=== PATIENT | male | born 1995 | race Caucasian/White ===

== ENCOUNTER 2019-04-20 17:17 | Emergency (ER) | payer BC, SELFPAY ==
[2019-04-20 17:18] VITALS: BP 121/71; PULSE 104; RESP 16; TEMP 36.4; O2SAT 100; BMI 20.9
[2019-04-20] MEDS: Dicyclomine 10 MG Capsule 20 MG PO (17:55)
[2019-04-20] MEDS: Ondansetron 4 MG/2 ML Vial IV (17:55)
[2019-04-20] MEDS: 0.9% Normal Saline 1,000 ML 1000 ML IV (17:55)
--- NOTE | 2019-04-20 18:22 | ED.DCSUM_ITS ---
History of Present Illness Chief Complaint: Nausea/Vomiting/Diarrhea Narrative: Patient presenting for evaluation secondary to nausea vomiting and diarrhea. Patient reports that at about 8 PM last night he had a precipitous onset of a GI illness. He reports that is been associated with a large amounts of nonbloody nonbilious emesis. He also states that he has been having multitudes of loose watery nonbloody non-mucousy stools. He has crampy abdominal pain. He does endorse some mild body aches but no measurable fevers. He does have a sick contact that he was around on [place]. Patient denies any recent antibiotics, travel, hospital admissions, or fdc exposures. Patient is otherwise healthy up-to-date on vaccines. Review of systems otherwise negative. Past Medical History - Allergies and Home Meds Allergies/Adverse Reactions: Allergies No Known Allergies Allergy (Verified 04/25/17 16:03) Primary Care Physician: Kaden Campbell MD [Primary Care Provider] - Past Medical History: None Smoking Status: Never smoker Review of Systems All systems negative except as indicated General: Reports: Malaise Eyes: Denies: Visual changes - bilaterally, Diplopia ENT: Denies: Rhinorrhea, Sore throat Cardiovascular: Denies: Chest pain, Palpitations Respiratory: Denies: Dyspnea, Cough, Dyspnea on exertion Gastrointestinal: Reports: Abdominal pain, Nausea, Vomiting, Diarrhea Genitourinary: Denies: Dysuria, Hematuria, Frequency Musculoskeletal: Denies: Back pain, Extremity Pain Skin: Denies: Rash, Wounds Neurological: Denies: Headache, Weakness, Numbness Physical Exam Vital Signs/Narrative: Vital Signs Temp Pulse Resp BP Pulse Ox 04/20/19 17:18 97.5 F L 104 H 16 121/71 H 100 Inital Vital Signs reviewed: Yes General: Well nourished, Well developed, No Acute Distress Head: Normocephalic, Atraumatic Eyes: Perrl, EOMI. Negative for: Pale conjunctiva, Scleral icterus ENT: Moist mucous membranes, - - Mildly erythematous posterior oropharynx Neck: Supple, Nontender Cardiovascular: Regular rate, No murmurs, Tachycardia Respiratory: No distress, CTA bilaterally, Chest nontender Abdomen: Soft, Tender - Mild epigastric no guarding or rebound Extremities: Nontender, No edema Skin: Normal color, No rash Neurological: Alert, Oriented x3, Cranial nerves II-XII grossly intact, Normal Strength, Normal Sensation Psychological: Normal affect, Normal Mood Diagnostic/Tx/Re-eval - Medical Decision Making Patient presented secondary to a GI illness. IV was established patient was given Zofran and Bentyl and fluids. Repeat evaluation of the patient at 1830 showed symptomatic improvement. Patient is nontoxic-appearing, I do not feel that he requires laboratory work-up. Patient will be discharged with a course of Zofran and continued supportive care with hydration's and electrolyte containing fluids. Disposition: Home ED Disposition - Plan for ED Patient: Disposition: Home or Assisted Living Diagnosis: Gastroenteritis and colitis, viral Instructions: GASTROENTERITIS, Viral (6y-Adult) Prescriptions: Ondansetron [Zofran Odt] 4 mg PO Q8H PRN PRN #10 tab PRN Reason: Nausea Prescription Printed Referrals: Kaden Campbell MD [Primary Care Provider] - 3-5 Days if not improving
[2019-04-20 18:44] VITALS: BP 116/76; PULSE 67; RESP 15
== END 2019-04-20 18:45 | disposition home or self-care (01) ==
PROVIDERS: Emergency Provider Emergency Medicine; Family Provider Internal Medicine; PCP Internal Medicine
DX: A08.4 Viral intestinal infection, unspecified (principal)
CPT/HCPCS: 96361; 96374; 99284; J7030; J2405

== ENCOUNTER 2022-03-23 22:32 | Emergency (ER) | payer BC, SELFPAY ==
[2022-03-23 22:34] VITALS: BP 121/72; PULSE 101; RESP 16; TEMP 37.2; O2SAT 98; BMI 21.7
--- NOTE | 2022-03-23 22:55 | EDS_ITS ---
HPI History of Present Illness Chief Complaint: Fever Narrative Narrative: Patient is a 26-year-old male with past medical history of exercise-induced asthma. He states today he had fevers and chills and took his temperature and it was elevated at 105. He states he took [id number]-zafafpp ibuprofen and his fever broke but he still has had headache congestion cough and muscle aches. He states he is concerned for infectious process because of the high fever and persistent symptoms and therefore comes in for evaluation PFSH PFS Medical History no medical history Home Medications cyclobenzaprine 10 mg tablet 10 mg PO TID PRN Muscle Spasm #20 tabs 04/25/17 [Rx Last Taken Unknown] naproxen 500 mg tablet 500 mg PO BID PRN #20 tabs 04/25/17 [Rx Last Taken Unknown] ondansetron 4 mg disintegrating tablet 4 mg PO Q8H PRN PRN Nausea #10 tabs 04/20/19 [Rx Last Taken Unknown] oseltamivir 75 mg capsule (Tamiflu) 75 mg PO BID 5 days #10 caps 03/24/22 [Rx Last Taken Unknown] promethazine 6.25 mg-codeine 10 mg/5 mL syrup 5 ml PO 4X/DAY PRN PRN cough 7 days #140 mL 03/24/22 [Rx Last Taken Unknown] Allergy/AdvReac Type Severity Reaction Status Date / Time No Known Allergies Allergy Verified 03/23/22 22:36 Social History Smoking Status: Never smoker [facility] ED Constitutional Constitutional ED: Reports chills and fever(s) ENT ENT ED: Reports rhinorrhea and sore throat Cardiovascular Cardiovascular: Denies chest pain Respiratory/Chest Respiratory/Chest: Reports cough; Denies dyspnea Gastrointestinal Gastrointestinal: Denies abdominal pain, diarrhea, nausea or vomiting Genitourinary Genitourinary ED: Denies dysuria Musculoskeletal Musculoskeletal: Reports myalgias Integumentary Denies rash Neurologic Neurologic: Reports headache(s) Hematologic/Lymphatic Hematologic/Lymphatic: Denies easy bleeding or easy bruising EXAM Physical Exam Const Vital Signs: 03/23/22 22:34 03/23/22 23:16 03/23/22 23:16 Temperature 98.9 F 103 F H Temperature Source Oral Oral Pulse Rate 101 H Respiratory Rate 16 Respiratory Effort Normal Non-Labored Respiratory Pattern Normal Blood Pressure 121/72 H Blood Pressure Mean 88 Pulse Ox 98 Oxygen Delivery Method Room Air Positive well nourished and well developed General Appearance ED: well developed HEENT Reports moist mucous membranes HEENT Narrative: Bilateral TMs are retracted but show no secondary changes to suggest infection. Nasal mucosa is hyperemic and boggy with enlarged inferior nasal turbinate. There is cobblestoning the posterior pharynx consistent with sinus drainage but no airway edema or compromise. Eyes PERRL and EOMs intact bilaterally Neck supple Neck Narrative: Positive anterior cervical lymphadenopathy noted Resp normal respiratory effort and clear to auscultation bilaterally Cardio regular rate and regular rhythm Extremity normal to inspection Extremity Narrative: No asymmetric edema no pitting edema negative Homans' sign bilaterally Neuro oriented x3 and CN's II-XII intact bilaterally Sensorium / Orientation: alert Psych mental status grossly normal Skin no rashes or lesions noted MDM MDM MDM Narrative Medical decision making narrative: Patient presented to the ER afebrile and in no acute respiratory distress. His report of 105 degree fever at home with congestion headache and fatigue is most consistent with influenza. Therefore a COVID and flu swab were obtained as well as a chest x-ray because of cough. X-ray revealed no acute pneumonia and viral swab was positive for influenza A which is consistent with his history and exam. On reevaluation he is resting comfortably his pulse ox remains in the high 90s on room air and he has no signs of respiratory distress. Therefore he can be given symptomatic medications and discharged home Radiography Diagnostic Testing: Clinical Impression(s) from Imaging Studies Chest X-Ray 03/23/22 23:06 IMPRESSION: Normal x-ray examination of the chest. No interval change. Electronically Signed: Paco Byrd DO at 23:24 EST Reading Location ID and State: [address] [place] [address] Tel [phone], Service support , Chest x-ray as interpreted by the emergency medicine physician reveals no acute infiltrate pneumothorax or pleural effusion Discharge Plan Triage Chief Complaint: Fever ED Provider: José Pringle Dx/Rx/DC Orders Clinical Impression: Influenza A, Pyrexia Instructions: ED Influenza (Adult) Prescriptions: New oseltamivir [Tamiflu] 75 mg capsule 75 mg PO BID 5 Days Qty: 10 0RF promethazine-codeine 6.25-10 mg/5 mL syrup 5 ml PO 4X/DAY PRN PRN (Reason: cough) 7 Days Qty: 140 0RF No Action cyclobenzaprine 10 MG tablet 10 mg PO TID PRN (Reason: Muscle Spasm) Qty: 20 0RF naproxen 500 MG tablet 500 mg PO BID PRN Qty: 20 0RF ondansetron 4 MG tablet 4 mg PO Q8H PRN PRN (Reason: Nausea) Qty: 10 0RF Primary Care Provider: Care Physician,No Primary Referrals: Mariela Ac DO [Med Staff - [employer]] - Care Physician,No Primary [Primary Care Provider] - Disposition Disposition: Home, Self Care
--- NOTE | 2022-03-23 23:06 | RAD_ITS ---
STUDY: X-RAY CHEST REASON FOR EXAM: Male, 26 years old. Cough. 105 degrees fever at home. Dizziness and nausea. TECHNIQUE: Single AP portable view of the chest. COMPARISON: April 25, 2017. FINDINGS: The lungs are clear and expanded. There is no demonstrated pleural abnormality. Normal size heart. Normal mediastinum and solange. Normal visualized pulmonary arteries. Normal visualized aortic arch and descending thoracic aorta. Normal visualized thoracic spine. Normal visualized ribs, clavicles, and shoulders. There is no demonstrated abnormality of the visualized soft tissue structures of the upper abdomen. RAD/Chest 1 View (Portable) IMPRESSION: Normal x-ray examination of the chest. No interval change. Electronically Signed: Paco Byrd DO at 23:24 EST ,
[2022-03-23] MEDS: 0.9% Normal Saline 1,000 ML 999 ML IV (23:14)
[2022-03-23] MEDS: dexAMETHasone 10 MG/ML Vial IV (23:14)
[2022-03-23 23:16] VITALS: TEMP 39.4
[2022-03-23] MEDS: Acetaminophen 500 MG Tablet 1000 MG PO (23:30)
[2022-03-24 00:48] VITALS: TEMP 37.6
== END 2022-03-24 01:15 | disposition home or self-care (01) ==
PROVIDERS: Emergency Provider Emergency Medicine; Visit Provider Emergency Medicine
DX: J10.1 Influenza due to other identified influenza virus with other respiratory manifestations (principal); R53.83 Other fatigue; R50.9 Fever, unspecified; Z20.822 Contact with and (suspected) exposure to COVID-19
CPT/HCPCS: 71045; 87428; 96374; 99284; J7030; A4216

== ENCOUNTER 2023-07-11 07:23 | Emergency (ER) | payer OTHER, SELFPAY ==
[2023-07-11 07:23] VITALS: BP 124/67; PULSE 68; RESP 14; TEMP 36.8; O2SAT 98; BMI 21.9
--- NOTE | 2023-07-11 07:39 | RAD_ITS ---
INDICATION: laceration EXAMINATION/TECHNIQUE: X-RAY - RIGHT XR Hand Min 3 Views 3 VIEWS COMPARISON: No relevant prior comparison study available FINDINGS: SOFT TISSUES: No soft tissue swelling or gas. No radiopaque foreign body. BONES/JOINTS: No acute fracture or subluxation.. Normal alignment. Preservation of the joint space.. No sclerotic or destructive changes observed. RAD/Hand Min 3 Views IMPRESSION: No evidence of acute fracture or dislocation. Electronically Signed: Steven Tejeda MD at 8:08 EDT ,
[2023-07-11] MEDS: Diphth,Pertuss(Acell),Tet Vac 0.5 ML Vial IM (07:48)
[2023-07-11] MEDS: Ibuprofen 600 MG Tablet PO (07:48)
--- NOTE | 2023-07-11 07:56 | EDS_ITS ---
HPI History of Present Illness Chief Complaint: Laceration Narrative Narrative: 27-year-old [id number] male with laceration to the right index finger laterally which is linear in the horizontal lie. Bleeding well-controlled. He states he was using a pocket knife when this happened. Patient denies numbness or tingling. Is able to range of motion. He believes he might of hit the bone. He is unsure. Tetanus unknown. PFSH [facility] Medical History Asthma Home Medications NK 07/11/23 [History Last Taken Unknown] Allergy/AdvReac Type Severity Reaction Status Date / Time No Known Allergies Allergy Verified 07/11/23 07:29 Social History Smoking Status: Never smoker ROS ROS ED Constitutional Constitutional ED: Denies chills, fever(s) or sweats Eyes Eyes: Denies blurry vision or change in vision ENT ENT ED: Denies ear pain or sore throat Cardiovascular Cardiovascular: Denies chest pain, palpitations or racing heartbeat Respiratory/Chest Respiratory/Chest: Denies cough, dyspnea or sputum Gastrointestinal Gastrointestinal: Denies abdominal pain, constipation, diarrhea, nausea or vomiting Genitourinary Genitourinary ED: Denies dysuria, hematuria or urinary frequency Musculoskeletal Musculoskeletal: Denies arthralgias, myalgias or neck pain Integumentary Reports other Details: Laceration right index finger ; Denies abscess, Abrasions or rash Neurologic Neurologic: Denies headache(s), paresthesias or weakness Psychiatric Psychiatric: Denies anxiety, depression, suicidal ideation or suicidal thoughts Endocrine Endocrinology: Denies polydipsia or polyuria EXAM Physical Exam Const Vital Signs: 07/11/23 07:23 Temperature 98.2 F Temperature Source Temporal Pulse Rate 68 Respiratory Rate 14 Blood Pressure 124/67 H Blood Pressure Mean 86 Pulse Ox 98 Oxygen Delivery Method Room Air Positive well nourished HEENT Reports moist mucous membranes Resp normal respiratory effort Cardio regular rate and regular rhythm Extremity Extremity Narrative: 3 cm laceration linear partial-thickness lateral aspect of right index finger in a horizontal lie. Full range of motion.Neurovascular intact. Prescribed refill all 5 fingers. Neuro oriented x3 and CN's II-XII intact bilaterally Sensorium / Orientation: alert Psych mental status grossly normal MDM MDM MDM Narrative Medical decision making narrative: Patient with laceration to right index finger. This will require sutures. Please see procedure note. Tetanus updated today. Ibuprofen given for pain. Patient tolerated procedure well. Return precautions were given. Patient will place in a dressing and AlumaFoam splint to protect his sutures. Impression: 1. 3 cm right index finger laceration Procedures Lacerations right index finger: Length: 1.18 in Depth: Sub Q Shape: Linear Prep: Sterile Conditions and Chlorhexadine Laceration repair: Digital block, Irrigated, Lidocaine and Local Irrigated (ml): 500 Number of Sutures/[place]: 4 Suture Information: [place] Discharge Plan Triage Chief Complaint: Laceration ED Provider: Kan Bazzi Dx/Rx/DC Orders Instructions: ED Laceration, Hand: All Closures Prescriptions: No Action NK Primary Care Provider: Care Physician,No Primary Referrals: Care Physician,No Primary [Primary Care Provider] - Clinic,NOW [Non-Staff] - 3-5 Days Disposition Disposition: Home, Self Care
[2023-07-11 09:31] VITALS: BP 122/66; PULSE 71; RESP 17
[2023-07-11 10:49] VITALS: BP 128/78; PULSE 74; RESP 16; TEMP 36.6; O2SAT 99
== END 2023-07-11 10:50 | disposition home or self-care (01) ==
PROVIDERS: Emergency Provider Student in an Organized Health Care Education/Training Program; Visit Provider Student in an Organized Health Care Education/Training Program
DX: S61.210A Laceration without foreign body of right index finger without damage to nail, initial encounter (principal); X58.XXXA Exposure to other specified factors, initial encounter
CPT/HCPCS: 73130; 90715; 99284

== ENCOUNTER 2024-09-26 12:03 | Emergency (ER) | payer OTHER, SELFPAY ==
[2024-09-26 12:03] VITALS: BP 136/86; PULSE 58; RESP 16; TEMP 36.6; O2SAT 100; BMI 23.3
--- NOTE | 2024-09-26 12:25 | RAD_ITS ---
PROCEDURE: FOREARM 2 VIEWS 09/26/2024 REASON FOR EXAM: PAIN INJURY Initial encounter TECHNIQUE: 2 view(s) of the right forearm COMPARISON: None. FINDINGS: Bones: Unremarkable Joints: Intact Soft tissues: No foreign body or significant soft tissue swelling appreciated Other: RAD/Forearm 2 Views IMPRESSION: Negative or osseous injury. Reading [facility]
--- NOTE | 2024-09-26 12:25 | RAD_ITS ---
PROCEDURE: HAND MIN 3 VIEWS 09/26/2024 REASON FOR EXAM: PAIN INJURY TECHNIQUE: 3 view(s) of the right hand COMPARISON: None FINDINGS: No acute fracture or dislocation. Joint spaces are maintained. No radiopaque foreign body. Mild dorsal soft tissue swelling. RAD/Hand Min 3 Views IMPRESSION: No acute findings. Reading Location: [facility]
--- OUTSIDE RECORDS SUMMARY | 2024-09-26 12:49 | XMS RPT_ITS | CCD ---
Author Organization [facility] Team Providers Care Sanitation Laborer Name Role Phone No Doctor Assigned, Nodr Unavailable Unavail able [place], Jose Guadalupe W Unavailable Unavailable Vilma, Jose Guadalupe W Unavailable Unavailable Kan Bazzi Attending Unavailable Care Physician, No Primary Primary Care Unava Liana Fink MD Primary Care Provider KELBY URRUTIA Referring Unavailable LIANA SEARS Primary Care Unavailable LIANA SEARS Primary Care Unavailable Medications Current Medications Medication Drug Class(es) Dates Sig (Normalized) Sig (Original) [id number] 200 actuat albuterol 0.09 mg/actuat metered dose inhaler (1 source) beta2-Adrenergic Agonist Start: 12-21-2015 take 2 puff(s) by inhalation every four hours as needed albuterol HFA (PROVENTIL HFA) 90 mcg/actuation inhaler Indications: Mild intermittent asthma without complication Inhale 2 Puffs as instructed every 4 hours as needed. 0 12/21/2015 Active 120 actuat fluticasone propionate 0.044 mg/actuat metered dose inhaler (1 source) Corticosteroid Start: 12-21-2015 take 1 puff(s) by inhalation twice daily as needed fluticasone (FLOVENT) 44 mcg/actuation inhaler Indications: Mild intermittent asthma without complication Inhale 1 Puff as instructed twice daily. Takes as needed. 0 12/21/2015 Active [place] (Nk) (1 source) Start: 07-11-2023 [place] (Nk) Active July 11, 2023 12:00am Completed/Discontinued Medications Medication Drug Class(es) Dates Sig (Normalized) Sig (Original) codeine phosphate 2 mg/ml / promethazine hydrochloride 1.25 mg/ml oral solution (4 sources) Opioid Agonist, Phenothiazine Start: 03-24-2022 End: 07-11-2023 take 1 mL by mouth four times daily as needed Promethazine-Codeine Discontinued 5 ML PO 4 TIMES DAILY NEEDED 140 March 24, 2022 2:00am July 11, 2023 7:29am cyclobenzaprine hydrochloride 10 mg oral tablet (2 sources) Muscle Relaxant Start: 04-25-2017 End: 07-11-2023 take 10 mg by mouth three times daily Cyclobenzaprine Discontinued 10 MG PO THREE TIMES A DAY April 25, 2017 1:00am July 11, 2023 7:29am naproxen 500 mg oral tablet (2 sources) Nonsteroidal Anti-inflammatory Drug Start: 04-25-2017 End: 07-11-2023 take 500 mg by mouth twice daily as needed Naproxen Discontinued 500 MG PO TWICE DAILY NEEDED April 25, 2017 1:00am July 11, 2023 7:30am ondansetron 4 mg disintegrating oral tablet (2 sources) Serotonin-3 Receptor Antagonist Start: 04-20-2019 End: 07-11-2023 take 4 mg by mouth every eight hours as needed Ondansetron Discontinued 4 MG PO EVERY 8 HOURS NEEDED April 20, 2019 1:00am July 11, 2023 7:29am oseltamivir 75 mg oral capsule (4 sources) Neuraminidase Inhibitor Start: 03-24-2022 End: 07-11-2023 take 1 capsule by mouth twice daily Oseltamivir (Tamiflu) 75 mg capsule Discontinued 75 MG PO TWICE A DAY 10 March 24, 2022 1:00am July 11, 2023 7:29am Problems Problem Classification Problem Date Documented Date Episodic/Chronic Asthma (1 source) Mild intermittent asthma; Translations: [Mild intermittent asthma, uncomplicated] Onset: 12-21-2015 12-21-2015 Chronic Fever of unknown origin (2 sources) Fever; Translations: [Fever, unspecified] 04-01-2022 Episodic Immunizations and screening for infectious disease (1 source) Contact with and (suspected) exposure to infections with a predominantly sexual mode of transmission; Translations: [Exposure to sexually transmitted disease (STD)] Onset: 10-28-2023 Episodic Influenza (2 sources) Influenza due to Influenza A virus; Translations: [Influenza due to other identified influenza virus with other respiratory manifestations] 12-12-2022 Episodic Intestinal infection (2 sources) Viral gastroenteritis; Translations: [Viral intestinal infection, unspecified] 04-21-2019 Episodic Open wounds of extremities (1 source) Laceration without foreign body of right index finger without damage to nail, initial encounter; Translations: [Laceration without foreign body of right index finger without damage to nail, initial encounter] Onset: 07-17-2023 Episodic Results Test Name Value Interpretation Reference Range Facil ity CNPNon [facility]2023 [facility] FRED GUARDADO ([id number]) 1995 M Date Time Provider Department 10/29/23 BRIANA SANDOVAL [facility] During your visit today, we recorded the following information about you: Briana Sandoval APRN.COIN MACHINE COLLECTOR SUPERVISOR 10/29/2023 10:45 AM Signed Syphilis and HIV are both negative. Please notify patient. Catherine Turcios LPN 10/29/2023 11:14 AM Signed TC to pt. Left a detailed message on a secure line with updates. Catherine Turcios LPN Allergies As of Date: 10/29/2023 (No Known Allergies) Date Reviewed: 10/27/2023 Reviewed by: Svetlana Lerner LPN - Fully Assessed Reason for Visit: Results [95] Prescriptions as of 10/29/2023 - fluticasone (FLOVENT) 44 mcg/actuation inhaler Inhale 1 Puff as instructed twice daily. Takes as needed. - albuterol HFA (PROVENTIL HFA) 90 mcg/actuation inhaler Inhale 2 Puffs as instructed every 4 hours as needed. Problem List As Of Date 10/29/2023 Noted Resolved Mild intermittent asthma [J45.20] 12/21/2015 Encounter Status:Closed by CATHERINE TURCIOS on 10/29/23 [facility] HIV 1+2 Ab IA Qlon 4 HIV 1 and 2 Ab IA.rapid Nom (S/P/Bld) Normal [facility] Comment on above: Order Comment: Speci men Type: BLOOD SPECIMEN Ordering Facility: [facility] Address: [address] [place] [address] Result Comment: Test not indicated. Performed By: #### 3 1201-7, 40483-3 #### [facility] CLIA [id number] [address] [place] [address] [place] HIV 1+2 Ab+HIV1 p24 Ag IA Ql Non-Reactive Normal Nonreactive [facility] Comment on above: Order Comment: Speci men Type: BLOOD SPECIMEN Ordering Facility: [facility] Address: [address] [place] [address] Performed By: #### 3 1201-7, 60503-3 #### [facility] CLIA [id number] [address] [place] [address] [place] HIV immunoassay testing algorithm interpretation (S/P/Bld) [Interp] Normal [facility] Comment on above: Order Comment: Speci men Type: BLOOD SPECIMEN Ordering Facility: [facility] Address: [address] [place] [address] Result Comment: No e vidence of HIV-1 or HIV-2 infection. Should recent infection be suspected, repeat testing may be considered 2-3 weeks after this draw. [place] Rev. Code 3701.243(E): This information has been disclosed to you from confidential records protected from disclosure by state law. ???You shall make no further disclosure of this information without the specific, written, and informed release of the individual to whom it pertains or as otherwise permitted by state law. A general authorization for the release of medical or other information is not sufficient for the purpose of the release of HIV test results or diagnoses. Performed By: #### 3 1201-7, 05654-5 #### [facility] CLIA [id number] [address] [place] [address] [place] Reagin and Treponema pallidu m IgG and IgM [Interp]on 10-28-2023 T. pallidum IgG+IgM IA Ql (S) Non-Reactive Normal Nonreactive [facility] Comment on above: Order Comment: Speci men Type: BLOOD SPECIMEN Ordering Facility: [facility] Address: [address] [place] [address] Performed By: #### 3 1201-7, 10570-8 #### [facility] CLIA [id number] [address] [place] [address] [place] Reagin+T pallidum IgG+IgM Se rPl-Impon 10-28-2023 Reagin and Treponema pallidum IgG and IgM [Interp] Cannot exclude recent Treponemal infection if specimen collected within 7-10 days after appearance of suspect lesions or 2-3 weeks after an exposure. Clinical correlation is required. Normal [facility] Comment on above: Order Comment: Speci men Type: BLOOD SPECIMEN Ordering Facility: [facility] Address: [address] [place] [address] Performed By: #### 3 1201-7, 74031-5 #### [facility] CLIA [id number] [address] [place] [address] [place] C. trachomatis+N. gonorrhoea e DNA JEFFREY+probe Ql (Unsp spec)on 10-27-2023 C. trachomatis rRNA JEFFREY+probe Ql (Unsp spec) Negative Normal Negative for Chlamydia trachomatis by amplificaton [facility] Comment on above: Order Comment: Speci men Type: URINE SPECIMEN Ordering Facility: [facility] Address: [address] [place] [address] Performed By: #### 3 6902-5 #### [facility] CLIA [id number] [address] [place] [address] [place] N. gonorrhoeae rRNA JEFFREY+probe Ql (Unsp spec) Negative Normal Negative for Neisseria gonorrhoeae by amplification [facility] Comment on above: Order Comment: Speci men Type: URINE SPECIMEN Ordering Facility: [facility] Address: [address] [place] [address] Performed By: #### 3 6902-5 #### [facility] CLIA [id number] [address] [place], [place] [address] [address] [facility] CNOVon 10-27-2023 CNOV Office Visit (UCWSTR ) FRED GUARDADO ([id number]) 1995 M Date Time Provider Department 10/27/23 5:45 PM KELBY URRUTIA [facility] During your visit today, we recorded the following information about you: Temperature Pulse Respiration Blood pressure 98.1 degrees 76/minute 16/minute 110/64 Weight 62.3 kg Kelby Urrutia MD 10/27/2023 6:14 PM Signed Patient presents with: STD check: STD check-told to get checked but no symptoms HPI: Patient was notified by a former partner that he should go for STD testing. He is no longer sexually active with her but did not use a condom. Dysuria: No Frequency: No Discharge: No Nausea: No Fever or chills: No Back pain: No Abdominal pain: No Prior STI: Yes, previously had treatment for possibly chlamydia. He has had a bump on his penis for some time. PAST MEDICAL HISTORY Diagnosis Date Mild intermittent asthma 12/21/2015 MEDICATIONS: Current Outpatient Medications Medication Sig fluticasone (FLOVENT) 44 mcg/actuation inhaler Inhale 1 Puff as instructed twice daily. Takes as needed. (Patient not taking: Reported on 10/27/2023) albuterol HFA (PROVENTIL HFA) 90 mcg/actuation inhaler Inhale 2 Puffs as instructed every 4 hours as needed. (Patient not taking: Reported on 04/09/2021 ) No current facility-administered medications for this visit. ALLERGIES: ALLERGIES No Known Allergies VITALS: BP 110/64 Pulse 76 Temp 36.7 ?C (98.1 ?F) (Tympanic) Resp 16 Wt 62.3 kg (137 lb 5.6 oz) SpO2 98% BMI 21.84 kg/m? PHYSICAL EXAM: GEN: NAD HEENT: EOMI, conjunctiva clear, HEART: regular rate and rhythm, no murmurs LUNGS: clear to auscultation, no wheezes or crackles, no increased WOB ABDOMEN: Soft, nondistended, no masses, no suprapubic tenderness : Normal external male genitalia. 5 mm flattened lightly pigmented verrucous papule on the dorsal shaft. 2 mm hyperpigmented papule at the base of the shaft. ASSESSMENT/PLAN: 1. Exposure to sexually transmitted disease (STD) - ICD9: V01.6, ICD10: Z20.2 (primary diagnosis) Unknown possible exposure to STI. Will treat based on results. He will return tomorrow for blood tests. - GONORRHEA/CHLAMYDIA NAAT - TRICHOMONAS VAGINALIS NAAT - HIV 1/2 COMBO WITH REFLEX TO DIFFERENTIATION - SYPHILIS TOTAL W/REFLEX 2. Genital warts - ICD9: 078.11, ICD10: A63.0 Treatment by urology to reduce spread of the lesions. Kelby Urrutia MD Allergies As of Date: 10/27/2023 (No Known Allergies) Date Reviewed: 10/27/2023 Reviewed by: Svetlana Lerner LPN - Fully Assessed Reason for Visit: STD check [Other] Cmt: STD check-told to get checked but no symptoms Primary Visit Diagnosis:Exposure to sexually transmitted disease (STD) [Z20.2] Other Visit Diagnosis:Genital warts [A63.0] Order(s):GONORRHEA/CHL AMYDIA NAAT [SQGCCT] Order #: [id number]. #:[id number] TRICHOMONAS VAGINALIS NAAT [SQTRVAMP] Order #: [id number]. #:[id number] HIV 1/2 COMBO WITH REFLEX TO DIFFERENTIATION [SQHIV12] Order #: [id number] FUTURE SYPHILIS TOTAL W/REFLEX [SQSYPHTX] Order #: [id number] FUTURE Prescriptions as of 10/27/2023 - fluticasone (FLOVENT) 44 mcg/actuation inhaler Inhale 1 Puff as instructed twice daily. Takes as needed. - albuterol HFA (PROVENTIL HFA) 90 mcg/actuation inhaler Inhale 2 Puffs as instructed every 4 hours as needed. Problem List As Of Date 10/27/2023 Noted Resolved Mild intermittent asthma [J45.20] 12/21/2015 Level of Service: OFFICE/OUTPATIENT ESTABLISHED MOD [facility] 30 MIN [02905] Encounter Status:Closed by KELBY URRUTIA on 10/27/[address] [facility] TRICHOMONAS VAGINALIS NAATon 10-27-2023 T. vaginalis DNA JEFFREY+probe Ql (Unsp spec) Negative Normal Negative for Trichomonas vaginalis by amplification [facility] Comment on above: Order Comment: Speci men Type: URINE SPECIMEN Ordering Facility: [facility] Address: [address] [place] [address] Performed By: #### T RVAMP #### [facility] CLIA [id number] [address] [place] [address] Emergency Department Summary on 07-11-2023 Emergency Department Summary [facility] Medical Records Department [address] [place] [id number] Emergency Department Summary 07/11/23 MR#: [id number] Acct: [id number] Name: FRED GUARDADO Rep #: [id number] : 1995 27 From: Kan Bazzi DO PCP: Care Physician,No Primary Status:REG ER Location: ED ADDENDUM by Dr. Kan Bazzi DO on 07/11/23 at 1041 X-ray 3 views of the right hand on my interpretation shows no acute fracture subluxation. There is no bony involvement with a laceration. Radiology interprets this and agrees 07/11/23 1041 Cosigner Signature (if applicable): cc: No Primary Care Physician * Signed HPI History of Present Illness Chief Complaint: Laceration Narrative Narrative: 27-year-old tsola-fjgq-zomivqav male with laceration to the right index finger laterally which is linear in the horizontal lie. Bleeding well-controlled. He states he was using a pocket knife when this happened. Patient denies numbness or tingling. Is able to range of motion. He believes he might of hit the bone. He is unsure. Tetanus unknown. [facility] Medical History Asthma Home Medications NK 07/11/23 [History Last Taken Unknown] Allergy/AdvReac Type Severity Reaction Status Date / Time No Known Allergies Allergy Verified 07/11/23 07:29 Social History Smoking Status: Never smoker ROS ROS ED Constitutional Constitutional ED: Denies chills, fever(s) or sweats Eyes Eyes: Denies blurry vision or change in vision ENT ENT ED: Denies ear pain or sore throat Cardiovascular Cardiovascular: Denies chest pain, palpitations or racing heartbeat Respiratory/Chest Respiratory/Chest: Denies cough, dyspnea or sputum Gastrointestinal Gastrointestinal: Denies abdominal pain, constipation, diarrhea, nausea or vomiting Genitourinary Genitourinary ED: Denies dysuria, hematuria or urinary frequency Musculoskeletal Musculoskeletal: Denies arthralgias, myalgias or neck pain Integumentary Reports other Details: Laceration right index finger ; Denies abscess, Abrasions or rash Neurologic Neurologic: Denies headache(s), paresthesias or weakness Psychiatric Psychiatric: Denies anxiety, depression, suicidal ideation or suicidal thoughts Endocrine Endocrinology: Denies polydipsia or polyuria EXAM Physical Exam Const Vital Signs: 07/11/23 07:23 Temperature 98.2 F Temperature Source Temporal Pulse Rate 68 Respiratory Rate 14 Blood Pressure 124/67 H Blood Pressure Mean 86 Pulse Ox 98 Oxygen Delivery Method Room Air Positive well nourished HEENT Reports moist mucous membranes Resp normal respiratory effort Cardio regular rate and regular rhythm Extremity Extremity Narrative: 3 cm laceration linear partial-thickness lateral aspect of right index finger in a horizontal lie. Full range of motion.Neurovascular intact. Prescribed refill all 5 fingers. Neuro oriented x3 and CN's II-XII intact bilaterally Sensorium / Orientation: alert Psych mental status grossly normal MDM MDM MDM Narrative Medical decision making narrative: Patient with laceration to right index finger. This will require sutures. Please see procedure note. Tetanus updated today. Ibuprofen given for pain. Patient tolerated procedure well. Return precautions were given. Patient will place in a dressing and AlumaFoam splint to protect his sutures. Impression: 1. 3 cm right index finger laceration Procedures Lacerations right index finger: Length: 1.18 in Depth: Sub Q Shape: Linear Prep: Sterile Conditions and Chlorhexadine Laceration repair: Digital block, Irrigated, Lidocaine and Local Irrigated (ml): 500 Number of Sutures/[place]: 4 Suture Information: Eth[place] Discharge Plan Triage Chief Complaint: Laceration ED Provider: Kan Bazzi Dx/Rx/DC Orders Instructions: ED Laceration, Hand: All Closures Prescriptions: No Action NK Primary Care Provider: Care Physician,No Primary Referrals: Care Physician,No Primary [Primary Care Provider] - Clinic,NOW [Non-Staff] - 3-5 Days Disposition Disposition: Home, Self Care What to do if you have Problems For any increased pain, shortness of breath, bleeding, nausea or vomiting, chest pain, or any unexpected problems, contact your Primary Care Provider. Call [facility] ([phone]) or report to the closest Emergency Room. Call 911 if necessary. 07/11/23 1041 Cosigner Signature (if applicable): CC: No Primary Care Physician Signed Normal [facility] Hand Min 3 Viewson 4 Hand Min 3 Views [facility] Imaging Services [address] [place] [address] Hand Min 3 Views MR#: [id number] Acct: [id number] Name: FRED GUARDADO Rep #: [id number] : 1995 M 27 From: Steven Peñaloza PCP: Care Physician,No Primary Status: REG ER Study: Hand Min 3 Views Date of Exam: 07/11/23 Exam# [id number] Ordering Dr: Kan Bazzi DO [id number] INDICATION: laceration EXAMINATION/TECHNIQUE: X-RAY - RIGHT XR Hand Min 3 Views 3 VIEWS COMPARISON: No relevant prior comparison study available FINDINGS: SOFT TISSUES: No soft tissue swelling or gas. No radiopaque foreign body. BONES/JOINTS: No acute fracture or subluxation.. Normal alignment. Preservation of the joint space.. No sclerotic or destructive changes observed. RAD/Hand Min 3 Views IMPRESSION: No evidence of acute fracture or dislocation. Electronically Signed: Steven Tejeda MD at 8:08 EDT , CC: Dr. Kan Bazzi, DO; No Primary Care Physician Change Room Attendant: Signed Normal [facility] Provider Note - ED v2on Provider Note - ED v2 Provider Note - ED v2: Chart Review: ED NOTES ED NOTES: ====HPI==== Fred is a 24 y/o WM presents with c/o headache with vomiting x1 episode yesterday, denies sx today. Character: Severity: denies Exacerbated by: n/a Improved by: n/a PMHX: denies PSHX: denies FHX: n/a Social HX: - TOBACCO - ETOH - DRUGS ====Review of Systems==== 10 point system review is negative except for those specifically mentioned in history of present illness ====Physical Exam==== VITALS: reviewed Constitutional/General : Alert and conversant, well appearing, nontoxic, and in NAD. Head: Normocephalic and atraumatic. Eyes: PER, conjunctive normal, sclera nonicteric, subconjunctival layer is pink. Mouth: handling secretions, no trismus, moist mucous membranes Neck: Supple, full ROM, no stridor, no crepitus, no meningeal signs. Trachea at midline. Respiratory: not in respiratory distress. Chest: normal chest movement GI: nondistended Musculoskeletal: Moves all extremities, warm and well perfused Integument: Skin warm and dry, no rashes. Neurologic: GCS 15, no focal deficits Psychiatric: Normal affect. ====ED Course and Medical Decision Making==== Differential diagnosis includes, but is not limited to: tension headache, covid-10, sinusitis, gastroenteritis Portions of this note were dictated by speech recognition. An attempt at proof reading was made to minimize errors. Minor errors in tile burner may be present. Please call if questions.. HISTORY OF PRESENTING ILLNESS FRED is a 24 year old Male and was seen by me at 21-Dec-2019 14:39. Triage Information: Most recent Vital Sign Value Date PAST MEDICAL HISTORY ATTESTATION: I have reviewed and confirmed nurse's/medic's notes for patient's medications, allergies, medical history, and surgical history ALLERGIES/INTOLERANCES : No Known Allergies HEALTH HISTORY: No documented data. OUTPATIENT MEDICATIONS: Home Medications Review Status for Reconciliation: Complete Med Status: No Current Medications SIGNIFICANT EVENTS: Past Medical History Description:denies Past Surgical History Description:denies Social/Behavioral Description:denies amoking/drinking REVIEW OF SYSTEMS All other systems reviewed and are negative MEDICAL DECISION MAKING/ED COURSE MDM/ED COURSE: 24-year-old male presents the urgent care for a work excuse. Patient states yesterday he developed a headache that caused him to vomit x1 episode and his place of employment is requiring him to have a work excuse to return to work. Patient is asymptomatic today denies any fevers or chills, nausea, vomiting, diarrhea, abdominal pain, chest pain, shortness of breath, headache, body ache, fatigue, travel or exposure to cover19. Patient's vital signs are stable. Patient does not appear acutely ill or toxic. I will give the excuse to return to work tomorrow and advised the patient that if his symptoms return that he should be reevaluated. CLINICAL IMPRESSION Diagnosis/Annotation: ED Dx Name:Headache Code:R51 Dispostion: discharged Type: home ATTESTATION CRITICAL CARE TIME Is this a critically ill patient: no Electronic Signatures: Rashawn Griffin (INSULATION BOARD COATER OPERATOR-COIN MACHINE COLLECTOR SUPERVISOR) (Signed 21-Dec-2019 15:04) Authored: Provider Note - ED v2 Last Updated: 21-Dec-2019 15:04 by Rashawn Griffin (INSULATION BOARD COATER OPERATOR-COIN MACHINE COLLECTOR SUPERVISOR) Normal [facility] .Manual Abson 10-29-2016 Basophil Abs Man 0.0 10x3/ Normal 0.0-0.2 [facility] Comment on above: Order Comment: Order Added by Discern Expert. Performed By: #### 3 [id number] ####ANDRADE [id number] [place] [address] Eos Abs Man 0.0 10x3/ Normal 0.0-0.5 [facility] Comment on above: Order Comment: Order Added by Discern Expert. Performed By: #### 3 [id number] ####ANDRADE [address] [place] [address] Lymphocytes 0.5 10x3/ Low 1.2-3.4 [facility] Comment on above: Order Comment: Order Added by Discern Expert. Performed By: #### 3 [id number] ####ANDRADE [address] [place] [address] [place] Abs Man 0.7 10x3/ Normal 0.0-0.7 [facility] Comment on above: Order Comment: Order Added by Discern Expert. Performed By: #### 3 [id number] ####ANDRADE [address] [place] [address] Segs Abs Man 8.0 10x3/ High 1.4-6.5 [facility] Comment on above: Order Comment: Order Added by Discern Expert. Performed By: #### 3 [id number] ####ANDRADE [address] [place] [address] BMPon 10-29-2016 BUN/Creatinine Ratio 12.5 ratio Normal 5.4-30.0 [facility] Comment on above: Performed By: #### 2 [id number] ####ANDRADE [id number] [place] [address] Creatinine 0.8 mg/dL Normal 0.6-1.3 [facility] Comment on above: Performed By: #### 2 [id number] ####ANDRADE[address]ana [id number] [place] [address] Urea nitrogen 10 mg/dL Normal 7-18 [facility] Comment on above: Performed By: #### 2 [id number] ####ANDRADEAriana WynnWpkHwcf2940 [place] [address] Calcium 9.2 mg/dL Normal 8.4-10.2 [facility] Comment on above: Performed By: #### 2 [id number] ####ANDRADEAriana WynnVhoImbe9662 [place] [address] Chloride 105 mmol/L Normal 98-107 [facility] Comment on above: Performed By: #### 2 [id number] ####ANDRADEAriana PathakVecEiea4733 [place] [address] CO2 26.1 mmol/L Normal 24.0-30.0 [facility] Comment on above: Performed By: #### 2 740247 ####ANDRADE WynnPxoGogh6831 [place] [address] Glucose mass conc 126 mg/dL High 70-99 [facility] Comment on above: Performed By: #### 2 [id number] ####ANDRADE WynnNapYflz9031 [place] [address] Potassium molar conc 3.6 mmol/L Normal 3.5-5.1 [facility] Comment on above: Performed By: #### 2 114472 ####ANDRADE Pathak1025 [place] [address] Sodium 136 mmol/L Normal 136-145 [facility] Comment on above: Performed By: #### 2 178834 ####ANDRADE WynnQyeKhml7716 [place] [address] CBC w/ Auto Diffon 7 Erythrocyte distribution width Auto Ratio (RBC) 15.5 % High 11.5-14.5 [facility] Comment on above: Performed By: #### 2 480544 ####ANDRADE WynnYbfAjim2071 [place] [address] Erythrocytes (RBC) 5.52 E6/mcL Normal 3.90-6.10 [facility] Comment on above: Performed By: #### 2 606321 ####ANDRADE WynnDuxRmwr4452 [place] [address] Hematocrit (HCT) 40.0 % Low 42.0-52.0 [facility] Comment on above: Performed By: #### 2 544878 ####ANDRADE WynnRspNuxb8366 [place] [address] Hemoglobin mass conc (Bld) 12.8 g/dL Low 13.5-18.0 [facility] Comment on above: Performed By: #### 2 958862 ####ANDRADE WynnUxhVsgu9637 [place] [address] MCH 23.2 pg Low 27.0-31.0 [facility] Comment on above: Performed By: #### 2 115929 ####ANDRADE Espitiao1025 [place] [address] MCHC mass conc (RBC) 32.0 g/dL Low 33.0-37.0 [facility] Comment on above: Performed By: #### 2 806822 ####ANDRADE Espitiao1025 [place] [address] MCV 72.5 fL Low 78.0-100.0 [facility] Comment on above: Performed By: #### 2 771825 ####ANDRADE Espitiao1025 [place] [address] Platelet mean volume (PMV) 10.6 fL Normal 7.4-11.0 [facility] Comment on above: Performed By: #### 2 169078 ####ANDRADE Espitiao[address]25 [place] [address] Platelets 136 E3/mcL Normal 130-400 [facility] Comment on above: Performed By: #### 2 542779 ####ANDRADE Espitiao1025 [place] [address] WBC (Leukocytes) 9.2 E3/mcL Normal 3.6-11.0 [facility] Comment on above: Performed By: #### 2 567739 ####ANDRADE Espitiao[address] [place] [address] CT Abdomen/Pelvis w/ Contras ton 10-29-2016 CT Abdomen/Pelvis w/ Contrast Exam Date/Time:10/29/2016 09:38 EDTReason for Exam:RLQ;PainReportEXA M: CT Abdomen/Pelvis w/ Contrast 10/29/2016CLINICAL STATEMENT: Right-sided lower abdominal pain.COMPARISON: None.TECHNIQUE: CT examination of the abdomen and pelvis following theadministration of 100 mL Omnipaque 300 intravenous contrast. No oral contrastmaterial.?Tahira nal and sagittal reformations were performed.Dose reduction techniques were achieved by using automated exposure controland/or adjustment of mA and/or kV according to patient size and/or use ofiterative reconstruction technique.FINDINGS: The liver and the spleen are homogeneous in appearance. Kidneysenhance appropriately without current hydronephrosis. Gallbladder shows noradiopaque stones. Pancreas appears normal. There is little intra-abdominal andpelvic fat in this thin patient. There is no bowel obstruction or freeintraperitoneal air. Appendix has air in the lumen. Bladder shows noabnormality.IMPRESSI ON:1. No definite acute process is seen in the abdomen or pelvis but the lack ofintra-abdominal fat reduces the sensitivity for detection of an inflammatoryresponse.2 . No bowel obstruction or free intraperitoneal air is identified.3. Appendix appears normal in size. FINAL REPORT Dictated: 10/29/2016 10:05 am Deanne Kaur MDSigned (Electronic Signature): 10/29/2016 10:42 amSigned by: Deanne Kaur MD Technologist: MM, Normal [facility] Hep Func Panelon 10-29-2016 Alanine aminotransferase (ALT) 32 Int._Unit/L Normal 10-40 [facility] Comment on above: Performed By: #### 2 [id number] ####ANDRADEAriana WynnUuvEqtz9460 [place] [address] Albumin 4.3 g/dL Normal 3.2-5.0 [facility] Comment on above: Performed By: #### 2 652655 ####ANDRADE WynnArvXgit7834 [place] [id number] Albumin/Globulin Ratio 1.5 {ratio} Normal 1.1-1.9 [facility] Comment on above: Performed By: #### 2 497596 ####ANDRADE Pathak[address] [place] [address] Alk Phos 83 Int._Unit/L Normal 42-121 [facility] Comment on above: Performed By: #### 2 159957 ####ANDRADE Pathak[address] [place] [address] Aspartate aminotransferase (AST) 35 Int._Unit/L Normal 10-42 [facility] Comment on above: Performed By: #### 2 811408 ####ANDRADEAriana WynnVfpPcmf3890 [place] [address] Bili Direct <.10 Normal .00-.20 [facility] Comment on above: Performed By: #### 2 019488 ####ANDRADE FddTvwd2096 [place] [address] Bili Indirect >0.5 Normal [facility] Comment on above: Result Comment: No e stablished ranges available for the Indirect Biliruben. Performed By: #### 2 410063 ####ANDRADE Pathak[address] [place] [address] Bili Total 0.6 mg/dL Normal 0.2-1.0 [facility] Comment on above: Performed By: #### 2 263980 ####ANDRADE Pathak[address] [place] [address] Globulin 2.9 g/dL Normal 2.0-4.0 [facility] Comment on above: Performed By: #### 2 693126 ####ANDRADE Pathak[address] [place] [address] Protein 7.2 g/dL Normal 6.4-8.3 [facility] Comment on above: Performed By: #### 2 104525 ####ANDRADE Pathak[address] [place] [address] Lipase Levelon 10-29-2016 Lipase Lvl 20 U/L Normal 8-57 [facility] Comment on above: Performed By: #### 2 470640 ####ANDRADE WynnBqkFqdj2137 [place] [address] Manual Diffon 10-29-2016 Anisocytosis presence 1+ Normal [facility] Comment on above: Order Comment: Order Added by Discern Expert. Performed By: #### 2 508191 ####ANDRADE NahNbua2032 [place] [address] Basophils/100 WBC Auto (Bld) 0 % Normal 0-1 [facility] Comment on above: Order Comment: Order Added by Discern Expert. Performed By: #### 2 163291 ####ANDRADE QcfQydn8064 [place] [address] Eosinophils/100 leukocytes 0 % Normal 0-5 [facility] Comment on above: Order Comment: Order Added by Discern Expert. Performed By: #### 2 880253 ####ANDRADE QrqDhah2003 [place] [address] Erythrocyte morphology SEE MORPHOLOGY Normal [facility] Comment on above: Order Comment: Order Added by Discern Expert. Performed By: #### 2 583480 ####ANDRADE WynnTanPcnu6408 [place] [address] Hypochromasia 1+ Normal [facility] Comment on above: Order Comment: Order Added by Discern Expert. Performed By: #### 2 774107 ####ANDRADE WynnSjpOngk4597 [place] [id number] Lymphocytes/100 leukocytes 5 % Low 14-48 [facility] Comment on above: Order Comment: Order Added by Discern Expert. Performed By: #### 2 781296 ####ANDRADE WynnXqgFzmk7507 [place] [address] Microcyte 1+ Normal [facility] Comment on above: Order Comment: Order Added by Discern Expert. Performed By: #### 2 221841 ####ANDRADE WynnKczCrct4282 [place] [address] Monocytes/100 leukocytes 8 % Normal 1-11 [facility] Comment on above: Order Comment: Order Added by Discern Expert. Performed By: #### 2 673615 ####ANDRADE WynnLbhIxxy8697 [place] [address] Segs Man 87 % High 37-75 [facility] Comment on above: Order Comment: Order Added by Discern Expert. Performed By: #### 2 384962 ####ANDRADE WynnCswXchu5651 [place] [address] UA Completeon 10-29-2016 UA Blood Negative Normal Negative [facility] Comment on above: Performed By: #### 8 [id number] ####ANDRADE Urinalysis Automated Ivuvalyzhz22[address] [place] [address] UA Clarity Clear Normal Clear [facility] Comment on above: Performed By: #### 8 [id number] ####ANDRADE Urinalysis Automated Yenhoalhkf5737 [place] [address] UA Leuk Est 1+ Abnormal Negative [facility] Comment on above: Performed By: #### 8 [id number] ####ANDRADE Urinalysis Automated Trhalxewdb6401 [place] [address] UA Mucous Few Abnormal Trace [facility] Comment on above: Performed By: #### 8 [id number] ####ANDRADE Urinalysis Automated Y[address]smull[address] [place] [address] UA Nitrite Negative Normal Negative [facility] Comment on above: Performed By: #### 8 [id number] ####ANDRADE Urinalysis Automated Ixygsimnmq1636 [place] [address] UA pH 6.0 Normal 4.6-8.0 [facility] Comment on above: Performed By: #### 8 [id number] ####ANDRADE Urinalysis Automated Mpnwyuyuww1029 [place] [address] UA Protein Negative Normal Negative [facility] Comment on above: Performed By: #### 8 [id number] ####ANDRADE Urinalysis Automated Ltibwwzeso5490 [place] [address] UA Spec Grav 1.016 Normal 1.003-1.030 [facility] Comment on above: Performed By: #### 8 [id number] ####ANDRADE Urinalysis Automated Jmjilbajyy7751 [place] [address] UA Squam Epithelial 0-5 Normal 0-5 [facility] Comment on above: Performed By: #### 8 [id number] ####ANDRADE Urinalysis Automated Xakwmqgkez3725 [place] [address] UA Urobilinogen Negative Normal [facility] Comment on above: Performed By: #### 8 7978596 ####ANDRADE Urinalysis Automated Vkpxrlospb3371 [place] [address] UA WBC 10-20 Abnormal 0-5 [facility] Comment on above: Performed By: #### 8 [id number] ####ANDRADE Urinalysis Automated Wkzknyaicd1954 [place] [address] Urine, color Yellow Normal Yellow [facility] Comment on above: Performed By: #### 8 0908525 ####ANDRADE Urinalysis Automated Zxfzvcpori8702 [place] [address] Urine, erythrocytes 0-3 Normal 0-3 [facility] Comment on above: Performed By: #### 8 0704125 ####ANDRADE Urinalysis Automated Nscsuwprbn8541 [place] [address] Urine, glucose Negative Normal Negative [facility] Comment on above: Performed By: #### 8 6583382 ####ANDRADE Urinalysis Automated Wqtxryehbk3466 [place] [address] Urine, ketones presence Negative Normal Negative [facility] Comment on above: Performed By: #### 8 [id number] ####ANDRADE Urinalysis Automated Axsholnqhm9188 [place] [address] Urine, urobilinogen Negative Normal Negative [facility] Comment on above: Performed By: #### 8 [id number] ####ANDRADE Urinalysis Automated Uma[address]ouyh47[address] [place] [id number] eGFRon 10-29-2016 eGFR (non-black) mL/min/{1.73_m2} Normal [facility] Comment on above: Order Comment: Order added by Discern Expert. Performed By: #### 1 [id number] ####ANDRADE GwdJwyi4871 [place] [address] zzplt morphon 10-29-2016 Platelet morphology ENLARGED Normal [facility] Comment on above: Performed By: #### 9 [id number] ####ANDRADE FkiQdqi7765 [place] [address] Platelets NORMAL Normal [facility] Comment on above: Performed By: #### 9 [id number] ####ANDRADE JbrUgdg1149 [place] [address] Influenza virus A and B and SARS-CoV-2 (COVID-19) Ag panel - Upper respiratory specim SARS-CoV-2 & FLU Antigen (Rapid) Influenzae A [facility] Work Phone: Vital Signs Date Time Vital Sign Value Performing Clinician Faci lity 07-11-2023 10:49-0400 Body temperature 97.8 [degF] [facility] 07-11-2023 10:49-0400 Diastolic blood pressure 78 mm[Hg] [facility] 07-11-2023 10:49-0400 Heart rate 74 /min [facility] 07-11-2023 10:49-0400 Respiratory rate 16 /min [facility] 07-11-2023 10:49-0400 SaO2% (BldA) [Mass fraction] 99 % [facility] 07-11-2023 10:49-0400 Systolic blood pressure 128 mm[Hg] [facility] 07-11-2023 07:23-0400 Body height 167.64 cm [facility] 07-11-2023 07:23-0400 Body mass index (BMI) [Ratio] 21.9 kg/m2 [facility] 07-11-2023 07:23-0400 Body weight 61.8 kg [facility] 03-24-2022 00:48-0500 Body temperature 99.7 [degF] [facility] Work Phone: 03-23-2022 22:34-0500 Body height 167.64 cm [facility] Work Phone: 03-23-2022 22:34-0500 Body mass index (BMI) [Ratio] 21.7 kg/m2 [facility] Work Phone: 03-23-2022 22:34-0500 Body weight 61.23 kg [facility] Work Phone: 03-23-2022 22:34-0500 Diastolic blood pressure 72 mm[Hg] [facility] Work Phone: 03-23-2022 22:34-0500 Heart rate 101 /min [facility] Work Phone: 03-23-2022 22:34-0500 Respiratory rate 16 /min [facility] Work Phone: 03-23-2022 22:34-0500 SaO2% (BldA) [Mass fraction] 98 % [facility] Work Phone: 03-23-2022 22:34-0500 Systolic blood pressure 121 mm[Hg] [facility] Work Phone: Encounters Encounter Date Encounter Type Care Provider Facility Start: 10-29-2023 Telephone encounter Briana Sandoval APRN.CNP Work Phone: [facility] Comment on above: Results Start: 10-28-2023 End: 10-28-2023 ambulatory KELBY URRUTIA Facility:[facility] Start: 10-27-2023 End: 10-27-2023 ambulatory LIANA SEARS Facility:[facility] Start: 07-11-2023 End: 07-11-2023 Emergency department patient visit Kan Bazzi Facility:[facility] Start: 07-11-2023 End: 07-11-2023 Emergency department patient visit [facility] Work Phone: Start: 03-23-2022 End: 03-24-2022 Emergency department patient visit [facility] Start: 10-29-2016 End: 10-29-2016 Emergency department patient visit Nodr No Doctor Assigned Facility:[facility] Procedures Date Procedure Procedure Detail Performing Clinician Start: 07-11-2023 Plain x-ray of hand Start: 03-23-2022 Plain chest X-ray SARS-CoV-2 & FLU Ant igen (Rapid) Plan of Treatment Date Care Activity Detail Author Start: 07-10-2033 Urine microalbumin profile DTaP,Tdap,Td Vaccine (7 - Td or Tdap) [facility] Start: 12-21-2023 Influenza vaccination Influenza Vacc ine (#1) [facility] Start: 07-11-2023 End: 07-11-2023 [facility] Start: 04-21-2023 Behavioral Health Screening Behavioral Health Screening [facility] Start: 12-20-2022 Covid-19 Vaccine ( season) Covid-19 Vaccine ( season) [facility] Start: 03-23-2022 [facility] Work Phone: Start: 08-18-2013 Annual PCP Team Weeder casandra Disease Visit Annual PCP Team Chronic Disease Visit [facility] Start: 08-18-2013 Hepatitis C screening Hepatitis C Ia james [facility] Patient Education [facility] Work Phone: Patient referral [facility] Work Phone: Immunizations Immunization Date Immunization Notes Care Provider Fa cility 07-11-2023 tetanus toxoid, redu hannah diphtheria toxoid, and acellular pertussis vaccine, adsorbed [facility] Payers Date Payer Category Payer Self-pay [id number] [address] [facility] U[employer] CHOICE PLUS [id number] 2022-Present [phone] [address] [address] [place] [address] HMO [id number] 2022 Unknown [id number] 2016 Unknown Unknown MARJ [id number] Unknown [id number] Social History Date Type Detail Facility Start: 03-23-2022 End: 07-11-2023 Tobacco smoking status NHIS Unknown if ever smoked [facility] Start: 1995 Sex Assigned At Male W [facility] Start: 12-21-2015 Tobacco smoking stat us WIIS Never smoked tobacco [facility] Start: 12-21-2015 Tobacco use and exposure Smokeless tobacco non-user [facility] Start: 10-27-2023 Alcohol intake 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 alcohol (finding) [facility] Start: 10-27-2023 End: 10-28-2023 History of Social function [facility] Start: 10-27-2023 End: 10-28-2023 Tobacco use panel [facility] National Score (1-10 0), lower number is lower risk 59 [facility] Start: 10-28-2023 Gender identity Identifies as male gender (finding) [facility] Start: 10-28-2023 Sexual orientation Heterosexual (erlinda leslie) [facility] Mental Status Date Assessment Result Facility 03-23-2022 Cognitive function Level Of Cons ciousness Awake;Alert;Appropriate;Follow s Commands [facility] Work Phone: Telephone encounter Note 10-29-2023 Telephone Encounter - Catherine Turcios LPN - 10/29/2023 11:14 AM EDT Note Date & Type Note Facility 10-29-2023 Telephone encount er Note TC to pt. Left a detailed message on a secure line with updates. Catherine Turcios LPN [facility] Note 10-29-2023 Telephone Encounter - Catherine Turcios LPN - 10/29/2023 11:14 AM EDTTelephone Encounter - Briana Sandoval APRN.CNP - 10/29/2023 10:45 AM EDT Note Date & Type Note Facility 10-29-2023 Miscellaneous Notes Formattin g of this note might be different from the original. TC to pt. Left a detailed message on a secure line with updates. Catherine Turcios LPN Syphilis and HIV are both negative. Please notify patient. documented in this encounter [facility] Telephone encounter Note 10-29-2023 Telephone Encounter - Briana Sandoval APRN.AMBER - 10/29/2023 10:45 AM EDT Note Date & Type Note Facility 10-29-2023 Telephone encounter Note Syphilis and HIV are both negative. Please notify patient. [facility] Work Phone: Progress note 10-27-2023 Note Date & Type Note Facility 10-27-2023 Note HNO ID: [id number] Author: KELBY URRUTIA MD Service: ? Author Type: Physician Type: Progress Notes Filed: 10/27/2023 18:14 Note Text: Patient presents with: STD check: STD check-told to get checked but no symptoms HPI: Patient was notified by a former partner that he should go for STD testing. He is no longer sexually active with her but did not use a condom. Dysuria: No Frequency: No Discharge: No Nausea: No Fever or chills: No Back pain: No Abdominal pain: No Prior STI: Yes, previously had treatment for possibly chlamydia. He has had a bump on his penis for some time. PAST MEDICAL HISTORY Diagnosis Date Mild intermittent asthma 12/21/2015 MEDICATIONS: Current Outpatient Medications Medication Sig fluticasone (FLOVENT) 44 mcg/actuation inhaler Inhale 1 Puff as instructed twice daily. Takes as needed. (Patient not taking: Reported on 10/27/2023) albuterol HFA (PROVENTIL HFA) 90 mcg/actuation inhaler Inhale 2 Puffs as instructed every 4 hours as needed. (Patient not taking: Reported on 04/09/2021 ) No current facility-administered medications for this visit. ALLERGIES: ALLERGIES No Known Allergies VITALS: BP 110/64 Pulse 76 Temp 36.7 ?C (98.1 ?F) (Tympanic) Resp 16 Wt 62.3 kg (137 lb 5.6 oz) SpO2 98% BMI 21.84 kg/m? PHYSICAL EXAM: GEN: NAD HEENT: EOMI, conjunctiva clear, HEART: regular rate and rhythm, no murmurs LUNGS: clear to auscultation, no wheezes or crackles, no increased WOB ABDOMEN: Soft, nondistended, no masses, no suprapubic tenderness : Normal external male genitalia. 5 mm flattened lightly pigmented verrucous papule on the dorsal shaft. 2 mm hyperpigmented papule at the base of the shaft. ASSESSMENT/PLAN: 1. Exposure to sexually transmitted disease (STD) - ICD9: V01.6, ICD10: Z20.2 (primary diagnosis) Unknown possible exposure to STI. Will treat based on results. He will return tomorrow for blood tests. - GONORRHEA/CHLAMYDIA NAAT - TRICHOMONAS VAGINALIS NAAT - HIV 1/2 COMBO WITH REFLEX TO DIFFERENTIATION - SYPHILIS TOTAL W/REFLEX 2. Genital warts - ICD9: 078.11, ICD10: A63.0 Treatment by urology to reduce spread of the lesions. Kelby Urrutia MD [facility] Discharge summary 07-11-2023 Note Date & Type Note Facility 07-11-2023 Discharge summary Note Date/Time July 11, 2023 7:56am [facility] Medical Records Department [address] [place] [address] Emergency Department Summary 07/11/23 MR#: [id number] Acct: [id number] Name: FRED GUARDADO Rep # :[id number] : 1995 27 From: Kan Bazzi DO PCP: Care Physician,No Primary Status :REG ER Location: ED ADDENDUM by Dr. Kan Bazzi DO on 07/11/23 at 1041 X-ray 3 views of the right hand on my interpretation shows no acute fracture subluxation. There is no bony involvement with a laceration. Radiology interprets this and agrees 07/11/23 1041<Electronically signed by Kan Bazzi DO> Cosigner Signature (if applicable): cc: No Primary Care Physician ~* Signed HPI History of Present Illness Chief Complaint: Laceration Narrative Narrative: 27-year-old [id number] male with laceration to the right index finger laterally which is linear in the horizontal lie. Bleeding well-controlled. He states he was using a pocket knife when this happened. Patient denies numbness or tingling. Is able to range of motion. He believes he might of hit the bone. He is unsure. Tetanus unknown. [facility] Medical History Asthma Home Medications NK 07/11/23 [History Last Taken Unknown] Allergy/AdvReac Type Severity Reaction Status Date / Time No Known Allergies Allergy Verified 07/11/23 07:29 Social History Smoking Status: Never smoker ROS ROS ED Constitutional Constitutional ED: Denies chills, fever(s) or sweats Eyes Eyes: Denies blurry vision or change in vision ENT ENT ED: Denies ear pain or sore throat Cardiovascular Cardiovascular: Denies chest pain, palpitations or racing heartbeat Respiratory/Chest Respiratory/Chest: Denies cough, dyspnea or sputum Gastrointestinal Gastrointestinal: Denies abdominal pain, constipation, diarrhea, nausea or vomiting Genitourinary Genitourinary ED: Denies dysuria, hematuria or urinary frequency Musculoskeletal Musculoskeletal: Denies arthralgias, myalgias or neck pain Integumentary Reports other Details: Laceration right index finger ; Denies abscess, Abrasions or rash Neurologic Neurologic: Denies headache(s), paresthesias or weakness Psychiatric Psychiatric: Denies anxiety, depression, suicidal ideation or suicidal thoughts Endocrine Endocrinology: Denies polydipsia or polyuria EXAM Physical Exam Const Vital Signs: 07/11/23 07:23 Temperature 98.2 F Temperature Source Temporal Pulse Rate 68 Respiratory Rate 14 Blood Pressure 124/67 H Blood Pressure Mean 86 Pulse Ox 98 Oxygen Delivery Method Room Air Positive well nourished HEENT Reports moist mucous membranes Resp normal respiratory effort Cardio regular rate and regular rhythm Extremity Extremity Narrative: 3 cm laceration linear partial-thickness lateral aspect of right index finger celeste horizontal lie. Full range of motion.Neurovascular intact. Prescribed refillall 5 fingers. Neuro oriented x3 and CN's II-XII intact bilaterally Sensorium / Orientation: alert Psych mental status grossly normal MDM MDM MDM Narrative Medical decision making narrative: Patient with laceration to right index finger. This will require sutures. Please see procedure note. Tetanus updated today. Ibuprofen given for pain. Patient tolerated procedure well. Return precautions were given. Patient will place in a dressing and AlumaFoam splint to protect his sutures. Impression: 1. 3 cm right index finger laceration Procedures Lacerations right index finger: Length: 1.18 in Depth: Sub Q Shape: Linear Prep: Sterile Conditions and Chlorhexadine Laceration repair: Digital block, Irrigated, Lidocaine and Local Irrigated (ml): 500 Number of Sutures/Mathew: 4 Suture Information: [place] Discharge Plan Triage Chief Complaint: Laceration ED Provider: Kan Bazzi Dx/Rx/DC Orders Instructions: ED Laceration, Hand: All Closures Prescriptions: No Action NK Primary Care Provider: Care Physician,No Primary Referrals: Care Physician,No Primary [Primary Care Provider] - Clinic,NOW [Non-Staff] - 3-5 Days Disposition Disposition: Home, Self Care What to do if you have Problems For any increased pain, shortness of breath, bleeding, nausea or vomiting, chestpain, or any unexpected problems, contact your Primary Care Provider. Call [facility] ([phone]) or report to the closest Emergency Room. Call 911 if necessary. 07/11/23 1041 <Electronically signed by Kan Bazzi DO> Cosigner Signature (if applicable): CC: No Primary Care Physician ~ Signed [facility] Work Phone: Evaluation note Note Date & Type Note Facility Evaluation note No assessment information availa ble [facility] Work Phone: Summary Purpose Family History No Family History Records FoundNo Family History Records FoundNo Family History Records FoundNo Family History Records Found Advance Directives No Advanced Directives Records Found Advance Directive Response Recorded Date/ Time Living Will No March 23 11:16pm Power of Electric Golf Cart Repairer No March 23, 2022 11:16pm Advance Directive Response Recorded Date/ Time Living Will No July 11, 2023 7:27am Power of Electric Golf Cart Repairer No July 10 7:27am Chief Complaint and Reason for Visit Chief Complaint fever Chief Complaint finger Additional Source Comments (unrecognized sect ion and content) No Status Records FoundNo Status Records FoundNo Status Records FoundNo Status Records Found INFORMATION SOURCE (unrecogn ized section and content) DATE CREATED AUTHOR 10/15/2017 [facility] DATE CREATED AUTHOR AUTHOR'S ORGANIZ ATION 12/23/2019 [facility] DATE CREATED AUTHOR AUTHOR'S ORGANIZ ATION 07/18/2023 [facility] DATE CREATED AUTHOR AUTHOR'S ORGANIZ ATION 11/04/[address] [facility] Goals (unrecognized section and content) Goals may be documented in a n alternate sectionGoals may be documented in an alternate section Care Teams (unrecognized sec tion and content) Team Status: Active Member Role Status Dates Dr. Kaden Campbell MD Family Provider Active No Primary Care Physician Primary Care Provider Active Team Status: Inactive Member Role Status Dates No Primary Care Physician Primary Care Provider Active Dr. Kan Bazzi DO Emergency Provider Active Sanitation Laborer Relationship Specialty Start Date End Date Liana Sears MD [address] [place] [address] PCP - General Family Medicine 06/22/19 Source Comments (unrecognize d section and content) In the event this informatio n is protected by the Federal Confidentiality of Alcohol and Drug Abuse Patient Records regulations: The Federal rules restrict any use of the information to criminally investigate or prosecute any alcohol or drug abuse patient.[facility] Reason for Visit (unrecogniz ed section and content) Reason Comments Results FOR RECORDS PERTAINING TO PATIENTS WHO ARE OR HAVE BEEN ENROLLED IN A CHEMICAL DEPENDENCY/SUBSTANCEABUSE PROGRAM, SOME INFORMATION MAY BE OMITTED. This clinical summary was aggregated from multiple sources. Caution should be exercised in using it in the provision of clinical care. This summary normalizes information from multiple sources, and as a consequence, information in this document may materially change the coding, format and clinical context of patient data. In addition, data may be omitted in some cases. CLINICAL DECISIONS SHOULD BE BASED ON THE PRIMARY CLINICAL RECORDS. [facility] [employer] [facility]. provides no warranty or guarantee of the accuracy or completeness of information in this document.
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
[2024-09-26] MEDS: HYDROcodone Bitartrate/Apap 5/325 Tablet PO (14:03)
[2024-09-26 14:04] VITALS: BP 132/74; PULSE 60; RESP 16; O2SAT 99
== END 2024-09-26 14:06 | disposition home or self-care (01) ==
PROVIDERS: Emergency Provider Emergency Medicine; Referring Provider Emergency Medicine; Visit Provider Emergency Medicine
DX: S67.21XA Crushing injury of right hand, initial encounter (principal); W23.2XXA Caught, crushed, jammed or pinched between a moving and stationary object, initial encounter; Y93.89 Activity, other specified
CPT/HCPCS: 73090; 73130; 99282